=== PATIENT | male | born 1995 | race African-American/Black ===

== ENCOUNTER 2017-01-07 08:35 | Emergency (ER) | payer OTHER ==
[~2017-01-07] VITALS: Ht 185.4 cm; Wt 61.7 kg
[~2017-01-07 08:35] MED LIST: FLEXERIL 10MG T10 MG PO; MOBIC15 MG PO
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
[2017-01-07 13:40] LABS: ABSOLUTE BASOPHIL COUNT 0.1 /CUMM (0.0-0.2); ABSOLUTE EOSINOPHIL COUNT 0 /CUMM (0.0-0.7); ABSOLUTE LYMPH COUNT 1.5 /CUMM (1.2-3.4); ABSOLUTE MONOCYTE COUNT 1.1 /CUMM (0.10-0.60); BASOPHIL % 0.6 % (0.0-2.0); EOSINOPHIL % 0.2 % (0-5); GRANULOCYTE % 76.9 % (42.2-75.2); HEMATOCRIT 43.2 % (42-52); MEAN CORPUSCULAR HGB 30.6 PG (27.0-31.0); MEAN CORPUSCULAR HGB CONC 33.1 G/DL (33.0-37.0); MEAN CORPUSCULAR VOLUME 92.3 FL (80.0-94.0); MEAN PLATELET VOLUME 7.9 FL (7.4-10.4); PLATELET COUNT 256 /CUMM (130-400); RBC DISTRIBUTION WIDTH 12.5 % (11.5-14.5); RED BLOOD CELL CT 4.68 /CUMM (4.70-6.10); WHITE BLOOD CELL COUNT 11.7 /CUMM (4.8-10.8)
--- NOTE | 2017-01-07 16:22 | ED PSY CRISIS COLLATERAL NOTE ---
Collateral Note Collateral Note Family/Inform/Josh Contacts: Spoke with Pt.'s garfield Olivera [phone]. She stated she has never seen pt. have psych issues since she's known him over the past year but this morning when she woke up he was "having a breakdown". She stated she attempted to calm him down but it didn't work. She reported he does not take meds, and has not since she's known him. She stated that she was not concerned that he would hurt himself or others (SI/HI) if released from the hospital. She inquired about visiting pt. in the ED to bring his son to see him since he had been upset earlier about not seeing his son on father's day. This underwriter informed her that Pt. was still sedated due to meds he was given this morning in the ED. Pt. stated she would attempt to visit a little later on.
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
[2017-01-07 19:26] VITALS: BP 109/55
[2017-01-08] MEDS ORDERED: BROMFED DM COU118 M1 PO (15:34)
[2017-01-08] MEDS ORDERED: BENADRYL25 MG PO (16:47)
[2017-01-08] MEDS ORDERED: NAPROSYN500 M1 PO (16:47)
== END 2017-01-07 19:27 ==
LOC: ERH 08:35
PROVIDERS: Emergency Medicine
DX: F20.9 Schizophrenia, unspecified (principal); R45.1 Restlessness and agitation
CPT/HCPCS: 80307; 96372; 99291; J1200; J1630